=== PATIENT | male | born 1960 | race African-American/Black ===

== ENCOUNTER 2018-03-04 14:24 | Emergency (ER) | payer OTHER ==
[~2018-03-04] VITALS: Ht 185.4 cm; Wt 108.9 kg
[2018-03-04] MEDS ORDERED: IBUPROFEN 800800 M1 PO (15:45)
[2018-03-04] MEDS ORDERED: SENNA-DOCUSATE1 EACH PO (15:45)
[2018-03-04] MEDS ORDERED: NORCO 5-325 TA1 EACH PO (15:45)
[2018-03-04] MEDS ORDERED: NORFLEX100 MG PO (15:45)
[2018-03-04 16:13] VITALS: BP 169/74
== END 2018-03-04 16:15 | disposition home or self-care (01) ==
LOC: ER 14:24
DX: S39.012A Strain of muscle, fascia and tendon of lower back, initial encounter (principal); X50.0XXA Overexertion from strenuous movement or load, initial encounter; Y93.89 Activity, other specified; Y92.89 Other specified places as the place of occurrence of the external cause; Y99.8 Other external cause status

== ENCOUNTER 2021-01-15 10:54 | Emergency (ER) | payer OTHER ==
[~2021-01-15] VITALS: Ht 185.4 cm; Wt 108.9 kg
[~2021-01-15 10:54] MED LIST: IBUPROFEN 800800 M1 PO; NORCO 5-325 TA1 EACH PO; NORFLEX100 MG PO; SENNA-DOCUSATE1 EACH PO
[2021-01-15] MEDS ORDERED: CYCLOBENZAPRINE5 MG PO (13:31)
[2021-01-15] MEDS ORDERED: NORCO5 PO (13:31)
[2021-01-15 13:40] VITALS: BP 136/99
== END 2021-01-15 13:41 | disposition home or self-care (01) ==
LOC: ER 10:54
DX: M25.512 Pain in left shoulder (principal); M54.5 Low back pain; M62.830 Muscle spasm of back; Z79.899 Other long term (current) drug therapy; V49.88XA Car occupant (driver) (passenger) injured in other specified transport accidents, initial encounter; Y93.89 Activity, other specified; Y92.413 State road as the place of occurrence of the external cause; Y99.9 Unspecified external cause status